=== PATIENT | female | born 1970 | race Hispanic/Latino ===

== ENCOUNTER → 2024-12-20 | Day surgery (SDC) | payer OTHER ==
[~2024-12-20] MED LIST: FENTANYL CITRATE/PF 100MCG/2 ML INJ ONE; GLUCAGON FOR INJ 1 MG VIAL ONE; HYOSCYAMINE SULFATE 0.5 MG/ML INJ ONE; KETAMINE HCL INJ 50 MG/ML 10 ML VIAL ONE; LIDOCAINE HCL 2% LOCAL INJ 5 ML SDV VIAL INJ ONE; MULTI-VITAMIN1 EACH PO; ONDANSETRON HCL INJ 2MG/ML 2ML 2 MG/ML VIAL ONE; PROPOFOL IV EMULSION 10 MG/ML 20 ML VIAL ONE; PROPOFOL IV EMULSION 50 ML IV ONE; VIT B12 PO
[2024-12-20] MEDS: LACTATED RINGER'S 1,000 ML ONE (06:50)
[2024-12-20 08:59] VITALS: TEMP 97.5
[2024-12-20 09:20] VITALS: BP 139/89; PULSE 85; RESP 18; O2SAT 99
== END | disposition home or self-care (01) ==
LOC: OR 05:58
PROVIDERS: ATTEND Internal Medicine Gastroenterology
DX: Z12.11 Encounter for screening for malignant neoplasm of colon (principal); D12.2 Benign neoplasm of ascending colon; D12.4 Benign neoplasm of descending colon; D12.5 Benign neoplasm of sigmoid colon; K29.70 Gastritis, unspecified, without bleeding; K22.2 Esophageal obstruction; K29.80 Duodenitis without bleeding; K21.9 Gastro-esophageal reflux disease without esophagitis; K20.90 Esophagitis, unspecified without bleeding; K64.8 Other hemorrhoids; E66.9 Obesity, unspecified; Z01.810 Encounter for preprocedural cardiovascular examination; Z68.30 Body mass index [BMI] 30.0-30.9, adult
CPT/HCPCS: 43239; 43251; 43450; 45385; 93005; J1610; J1980; J2003; J2405; J2470; J2704 ×2; J3010; J7121; 45378